=== PATIENT | male | born 1980 | race Caucasian/White ===

== ENCOUNTER 2020-02-08 01:41 | Emergency (ER) | payer OTHER ==
[~2020-02-08] VITALS: Ht 170.2 cm; Wt 72.6 kg
[~2020-02-08 01:41] MED LIST: NOHOMEMEDICATIONS; NORCO 5-325 TA1 EACH PO; PHENERGAN50 MG RC
[2020-02-08] MEDS ORDERED: TRIAMTERENE-HC1 EAC1 PO (02:08)
[2020-02-08] MEDS ORDERED: ALPRAZOLAM PO (02:09)
[2020-02-08] MEDS ORDERED: BELBUCA150 MCG PO (02:11)
[2020-02-08 03:06] VITALS: BP 106/47
--- NOTE | 2020-02-08 14:18 | EKG ---
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
== END 2020-02-08 03:09 | disposition home or self-care (01) ==
LOC: ER 01:41
DX: R51.9 Headache, unspecified (principal); R11.2 Nausea with vomiting, unspecified; H53.149 Visual discomfort, unspecified; F17.210 Nicotine dependence, cigarettes, uncomplicated; Z79.899 Other long term (current) drug therapy